=== PATIENT | female | born 2000 | race Caucasian/White ===

== ENCOUNTER → 2022-02-21 | Outpatient (CLI) | payer OTHER ==
[~2022-02-21] MED LIST: AMOXIL250 MG/5 M PO; AMOXIL400 MG/5 M PO; CLARITIN5 MG/5 ML PO; INTUNIV2 MG PO; OMNICEF125 MG/5 M PO; ZITHROMAX200 MG/51 PO; ZYRTEC5 M1
[2022-02-21 12:59] LABS: HEMATOCRIT 42.5 % (37.0-47.0); MEAN CELL VOLUME 86.2 fl (81.0-99.0); MEAN CORPUSCULAR HGB 28.8 pg (27.0-31.0); MEAN CORPUSCULAR HGB CONC 33.4 g/dl (33.0-37.0); MEAN PLATELET VOLUME 9.3 fl (9.6-12.3); RED BLOOD COUNT 4.93 10*6/uL (4.10-5.10); RED CELL DISTRI WIDTH 13.5 % (0-14.5); WHITE BLOOD COUNT 7.5 10*3/uL (4.8-10.8)
[2022-02-21 13:20] LABS: BUN 14 mg/dl (7-24); CHLORIDE 111 mmol/L (98-107); CHOLESTEROL 150 mg/dL (<200); CREATININE 0.71 mg/dL (0.55-1.02); POTASSIUM 4.1 mmol/L (3.5-5.1); SGOT/AST 10 IU/L (3-35); SGPT/ALT 21 U/L (12-78); SODIUM 140 mmol/L (136-145); TOTAL PROTEIN 7.9 gm/dL (6.4-8.2); TRIGLYCERIDES 36 mg/dl (<150)
[2022-02-21 13:24] LABS: ALKALINE PHOSPHATASE 60 U/L (45-117); FREE T4 0.96 ng/dl (0.76-1.46); LDL CHOLESTEROL 71 mg/dL (9-159)
[2022-02-21 14:17] LABS: VITAMIN D, 25-HYDROXY 30.9 ng/mL (30-100)
== END | disposition home or self-care (01) ==
LOC: LAB 12:43
PROVIDERS: ATTEND Family Medicine
DX: E55.9 Vitamin D deficiency, unspecified (principal); E16.2 Hypoglycemia, unspecified; R63.4 Abnormal weight loss; R51.9 Headache, unspecified; Z79.899 Other long term (current) drug therapy

== ENCOUNTER 2022-03-13 21:08 | Emergency (ER) | payer OTHER ==
[~2022-03-13] VITALS: Ht 157.4 cm; Wt 49.9 kg
[2022-03-14] MEDS ORDERED: IBU600 M1 PO (01:14)
== END 2022-03-14 01:10 | disposition home or self-care (01) ==
LOC: ED 21:08
DX: S23.3XXA Sprain of ligaments of thoracic spine, initial encounter (principal); Z79.899 Other long term (current) drug therapy; X50.0XXA Overexertion from strenuous movement or load, initial encounter; Y93.89 Activity, other specified; Y92.89 Other specified places as the place of occurrence of the external cause; Y99.8 Other external cause status

== ENCOUNTER → 2022-08-14 | Outpatient (CLI) | payer OTHER ==
[~2022-08-14] MED LIST changes: +IBU600 M1 PO
[2022-08-15 18:06] LABS: TESTOSTERONE FREE, (DIRECT) 0.7 pg/mL (0.0-4.2)
== END | disposition home or self-care (01) ==
LOC: LAB 12:39
PROVIDERS: ATTEND Family Medicine
DX: L70.0 Acne vulgaris (principal); R51.9 Headache, unspecified; R53.83 Other fatigue

== ENCOUNTER 2022-09-18 16:55 | Emergency (ER) | payer OTHER ==
[~2022-09-18] VITALS: Ht 157.4 cm; Wt 54.4 kg
[2022-09-18 17:28] LABS: BILIRUBIN Negative (Negative); BLOOD 3+ (Negative); CLARITY Cloudy (Clear); COLOR Yellow (Yellow); GLUCOSE Negative (Negative); KETONE Negative (Negative); LEUKO ESTERASE Trace (Negative); NITRITE Negative (Negative)
[2022-09-18 17:34] LABS: BACTERIA 2+; RBC 31-40 rbc/hpf (0-2)
== END 2022-09-18 18:51 | disposition home or self-care (01) ==
LOC: ED 16:55
PROVIDERS: Nurse Practitioner Family
DX: N93.9 Abnormal uterine and vaginal bleeding, unspecified (principal); R10.32 Left lower quadrant pain; F90.9 Attention-deficit hyperactivity disorder, unspecified type

== ENCOUNTER → 2022-10-19 | Outpatient (CLI) | payer OTHER | END | disposition home or self-care (01) | LOC: LAB 14:56 | PROVIDERS: ATTEND Nurse Practitioner Women's Health | DX: N91.2 Amenorrhea, unspecified (principal) ==

== ENCOUNTER → 2022-11-15 | Outpatient (CLI) | payer OTHER | END | disposition home or self-care (01) | LOC: LAB 16:01 | PROVIDERS: ATTEND Family Medicine | DX: Z32.01 Encounter for pregnancy test, result positive (principal) ==

== ENCOUNTER → 2024-04-11 | Outpatient (CLI) | payer OTHER ==
[2024-04-11 12:40] LABS: HEMATOCRIT 41.7 % (37.0-47.0); MEAN CELL VOLUME 83.7 fl (81.0-99.0); MEAN CORPUSCULAR HGB 27.5 pg (27.0-31.0); MEAN CORPUSCULAR HGB CONC 32.9 g/dl (33.0-37.0); MEAN PLATELET VOLUME 9.5 fl (9.6-12.3); RED BLOOD COUNT 4.98 10*6/uL (4.10-5.10); RED CELL DISTRI WIDTH 13.5 % (0-14.5); WHITE BLOOD COUNT 10.1 10*3/uL (4.8-10.8)
[2024-04-11 13:04] LABS: ALKALINE PHOSPHATASE 70 U/L (46-116); BUN 12 mg/dl (9-23); CHLORIDE 106 mmol/L (98-107); CHOLESTEROL 199 mg/dL (<200); LDL CHOLESTEROL 124 mg/dL (9-159); POTASSIUM 4.1 mmol/L (3.4-5.1); SGPT/ALT 13 U/L (5-49); TOTAL PROTEIN 7.5 gm/dL (6.0-8.0); TRIGLYCERIDES 121 mg/dl (<150)
[2024-04-11 13:06] LABS: VITAMIN D, 25-HYDROXY 19.1 ng/mL (30-100)
== END | disposition home or self-care (01) ==
LOC: LAB 11:56
PROVIDERS: ATTEND Family Medicine
DX: Z13.220 Encounter for screening for lipoid disorders (principal); R53.82 Chronic fatigue, unspecified; E55.9 Vitamin D deficiency, unspecified; Z00.00 Encounter for general adult medical examination without abnormal findings; G43.001 Migraine without aura, not intractable, with status migrainosus; J31.0 Chronic rhinitis

== ENCOUNTER → 2024-07-07 | Outpatient (CLI) | payer OTHER | END | disposition home or self-care (01) | LOC: LAB 10:40 | PROVIDERS: ATTEND Family Medicine | DX: E55.9 Vitamin D deficiency, unspecified (principal) ==

== ENCOUNTER 2024-07-23 10:04 | Emergency (ER) | payer OTHER ==
[~2024-07-23] VITALS: Ht 157.4 cm; Wt 67.1 kg
[2024-07-23] MEDS ORDERED: ENSKYCE 28 TAB1 EACH PO (10:10)
[2024-07-23] MEDS ORDERED: CHILDREN'S FLO5.9 ML NS (10:11)
[2024-07-23] MEDS ORDERED: RIZATRIPTAN10 MG PO (10:11)
[2024-07-23] MEDS ORDERED: VALACYCLOVIR500 M1 PO (10:11)
== END 2024-07-23 10:36 | disposition home or self-care (01) ==
LOC: ED 10:04
DX: S60.111A Contusion of right thumb with damage to nail, initial encounter (principal); Z79.899 Other long term (current) drug therapy; W23.0XXA Caught, crushed, jammed, or pinched between moving objects, initial encounter; Y93.89 Activity, other specified; Y92.89 Other specified places as the place of occurrence of the external cause; Y99.8 Other external cause status

== ENCOUNTER → 2025-02-06 | Outpatient (CLI) | payer OTHER ==
[~2025-02-06] MED LIST changes: +CHILDREN'S FLO5.9 ML NS; +ENSKYCE 28 TAB1 EACH PO; +RIZATRIPTAN10 MG PO; +VALACYCLOVIR500 M1 PO
== END | disposition home or self-care (01) ==
LOC: US 14:13
PROVIDERS: ATTEND Nurse Practitioner Women's Health
DX: N83.291 Other ovarian cyst, right side (principal); R10.20 Pelvic and perineal pain unspecified side